=== PATIENT | female | born 1945 | race Caucasian/White ===

== ENCOUNTER 2022-10-06 10:07 | Inpatient (IN) | payer MEDICARE ==
[~2022-10-06] VITALS: Ht 154.9 cm; Wt 68.9 kg
[2022-10-06] VITALS (7 sets, daily range): BP systolic 106–115; BP diastolic 36–60; PULSE 94–105; RESP 16–18; TEMP 97.9–98.7; O2SAT 95–100
[~2022-10-06 10:07] MED LIST: CEFUROXIME250 MG PO; LIPITOR20 MG PO; PEPCID20 MG PO; SIMVASTATIN20 MG PO
[2022-10-06] MEDS ORDERED: SODIUM CHLORIDE 0.9% 1000ML 1,000 ML IV SCH ×2 (10:45→12:30)
[2022-10-06 11:39] LABS: BASOPHILS # (AUTO) 0.1 (0.0-0.1); BASOPHILS % 0.6 % (0.0-1.0); EOSINOPHILS # (AUTO) 0.3 (0.0-0.4); EOSINOPHILS % 3.3 % (0.0-6.0); HEMOGLOBIN 12.5 g/dL (12.0-16.0); LYMPHOCYTES # (AUTO) 0.8 (1.0-3.2); LYMPHOCYTES % 8.9 % (18.0-39.1); MEAN CORPUSCULAR HEMOGLOBIN 29.8 pg (28-32); MEAN CORPUSCULAR HGB CONC 32.1 g/dL (31-35); MEAN CORPUSCULAR VOLUME 92.9 fL (81-99); MONOCYTES % 11.1 % (4.4-11.3); NEUTROPHILS # (AUTO) 6.8 (2.1-6.9); NEUTROPHILS % 75.5 % (38.7-80.0); PLATELET COUNT 320 x10e3/uL (140-360); RED CELL DISTRIBUTION WIDTH 15.8 % (11.7-14.4)
[2022-10-06 11:51] LABS: ALBUMIN/GLOBULIN RATIO 1.1 (0.8-2.0); CALCIUM 9.2 mg/dL (8.4-10.2); CREATININE, SERUM 0.73 mg/dL (0.57-1.11)
[2022-10-06 12:18] LABS: CLARITY,URINE TURBID (CLEAR); COLOR,URINE YELLOW (YELLOW); LEUKOCYTE ESTERASE ,URINE NEGATIVE (NEGATIVE)
[2022-10-06 12:19] LABS: KETONES,URINE 2+ (NEGATIVE); NITRITE,URINE POSITIVE (NEGATIVE); PROTEIN,URINE DIPSTICK NEGATIVE (NEGATIVE); URINE UROBILINOGEN 0.2 mg/dL (0.2 - 1)
[2022-10-06 12:21] LABS: BACTERIA,URINE MANY /HPF; EPITHELIAL CELLS,URINE MANY /LPF; WBC,URINE (MAN) 21-50 /HPF (0-5)
[2022-10-06] MEDS ORDERED: COZAAR25 MG PO (12:54)
[2022-10-06] MEDS ORDERED: OMEPRAZOLE40 MG PO (12:54)
[2022-10-06] MEDS ORDERED: METHOTREXATE2.5 MG PO (12:54)
[2022-10-06] MEDS ORDERED: ZETIA10 MG PO (12:54)
[2022-10-06] MEDS ORDERED: PREDNISONE5 MG PO (12:54)
[2022-10-06] MEDS ORDERED: ALENDRONATE SOD70 MG PO (12:54)
[2022-10-06] MEDS ORDERED: ESTRADIOL1 MG TOP (12:54)
[2022-10-06] MEDS ORDERED: CALCIUM CARBON500 MG PO (12:54)
[2022-10-06] MEDS ORDERED: FOLIC ACID0.4 MG PO (12:54)
[2022-10-06] MEDS ORDERED: PREDNISONE10 MG PO (12:54)
[2022-10-06] MEDS ORDERED: ASPIRIN81 MG PO (12:54)
[2022-10-06] MEDS ORDERED: ONDANSETRON HCL INJ 2MG/ML 2ML 2 MG/ML VIAL IV PRN (13:00)
[2022-10-06] MEDS ORDERED: IOPAMIDOL 370 MG/ML 100 ML INFUS..BTL INJ ONE (13:31)
[2022-10-06] MEDS ORDERED: FOLIC ACID 1 MG TAB PO SCH (14:00)
[2022-10-06] MEDS: ACETAMINOPHEN 325 MG TAB PO PRN (18:20)
[2022-10-06] MEDS: SODIUM CHLORIDE 0.9% 1000ML 1,000 ML IV SCH (18:20)
[2022-10-06] MEDS ORDERED: ENOXAPARIN SOD INJ 60 MG/0.6 ML SYR SC STA (20:55)
[2022-10-06] MEDS ORDERED: OYST-CAL-D 500MG TABLET PO SCH (21:00)
[2022-10-06] MEDS: OYST-CAL-D 500MG TABLET PO SCH (22:52)
[2022-10-06] MEDS: FOLIC ACID 1 MG TAB PO SCH (22:53)
[2022-10-06] MEDS: HYDROCODONE/APAP 5MG-325MG TAB PO PRN (22:53)
[2022-10-07] VITALS (11 sets, daily range): BP systolic 101–159; BP diastolic 54–70; PULSE 72–89; RESP 16–19; TEMP 97.6–98.5; O2SAT 96–100
[2022-10-07] MEDS: SODIUM CHLORIDE 0.9% 1000ML 1,000 ML IV SCH ×3 (02:30→16:39)
[2022-10-07 05:31] LABS: BASOPHILS % 0.5 % (0.0-1.0); EOSINOPHILS # (AUTO) 0.4 (0.0-0.4); EOSINOPHILS % 9.8 % (0.0-6.0); HEMATOCRIT 33.8 % (34.2-44.1); HEMOGLOBIN 10.3 g/dL (12.0-16.0); LYMPHOCYTES # (AUTO) 1.1 (1.0-3.2); LYMPHOCYTES % 24.8 % (18.0-39.1); MEAN CORPUSCULAR HEMOGLOBIN 29.8 pg (28-32); MEAN CORPUSCULAR HGB CONC 30.5 g/dL (31-35); MEAN CORPUSCULAR VOLUME 97.7 fL (81-99); MONOCYTES # (AUTO) 0.7 (0.2-0.8); MONOCYTES % 15.7 % (4.4-11.3); NEUTROPHILS # (AUTO) 2.1 (2.1-6.9); NEUTROPHILS % 48.3 % (38.7-80.0); PLATELET COUNT 248 x10e3/uL (140-360); RED BLOOD COUNT 3.46 x10e6/uL (3.6-5.1); RED CELL DISTRIBUTION WIDTH 15.7 % (11.7-14.4)
[2022-10-07 05:45] LABS: ANION GAP 9.7 mmol/L (8-16); CALCIUM 7.6 mg/dL (8.4-10.2); CREATININE, SERUM 0.49 mg/dL (0.57-1.11); POTASSIUM 3.7 mmol/L (3.5-5.1)
[2022-10-07] MEDS: HYDROCODONE/APAP 5MG-325MG TAB PO PRN ×3 (07:27→21:19)
[2022-10-07] MEDS: PANTOPRAZOLE SOD 40 MG TABEC PO SCH (08:42)
[2022-10-07] MEDS: ASPIRIN 81 MG CHEW TAB PO SCH (08:42)
[2022-10-07] MEDS: EZETIMIBE 10 MG TAB PO SCH (08:42)
[2022-10-07] MEDS: LOSARTAN POTASSIUM 25 MG TAB PO SCH (08:43)
[2022-10-07] MEDS ORDERED: ENOXAPARIN SOD INJ 60 MG/0.6 ML SYR SC STA (11:08)
[2022-10-07] MEDS ORDERED: IOPAMIDOL 370 MG/ML 100 ML INFUS..BTL INJ ONE (13:38)
[2022-10-07] MEDS: ALBUTEROL SULF 0.083% NEB SOLN 3 ML NEB NEB SCH ×2 (15:30→23:30)
[2022-10-07] MEDS ORDERED: ONDANSETRON HCL 4 MG ORAL DISINTEGRATING TAB PO PRN (19:15)
[2022-10-07] MEDS: OYST-CAL-D 500MG TABLET PO SCH (21:15)
[2022-10-07] MEDS: FOLIC ACID 1 MG TAB PO SCH (21:15)
[2022-10-07] MEDS: ATORVASTATIN 20 MG TAB PO SCH (21:15)
[2022-10-07] MEDS: ENOXAPARIN SOD INJ 60 MG/0.6 ML SYR SC SCH (21:16)
[2022-10-08] VITALS (11 sets, daily range): BP systolic 125–145; BP diastolic 66–81; PULSE 77–102; RESP 16–22; TEMP 97.5–98.4; O2SAT 94–100
[2022-10-08] MEDS: SODIUM CHLORIDE 0.9% 1000ML 1,000 ML IV SCH ×2 (02:36→14:01)
[2022-10-08 05:31] LABS: BASOPHILS % 0.8 % (0.0-1.0); EOSINOPHILS # (AUTO) 0.4 (0.0-0.4); EOSINOPHILS % 8.8 % (0.0-6.0); HEMATOCRIT 32.6 % (34.2-44.1); HEMOGLOBIN 9.9 g/dL (12.0-16.0); LYMPHOCYTES # (AUTO) 1.6 (1.0-3.2); LYMPHOCYTES % 33.2 % (18.0-39.1); MEAN CORPUSCULAR HEMOGLOBIN 29.5 pg (28-32); MEAN CORPUSCULAR HGB CONC 30.4 g/dL (31-35); MONOCYTES # (AUTO) 0.7 (0.2-0.8); MONOCYTES % 14.1 % (4.4-11.3); NEUTROPHILS % 42.5 % (38.7-80.0); PLATELET COUNT 238 x10e3/uL (140-360); RED BLOOD COUNT 3.36 x10e6/uL (3.6-5.1); RED CELL DISTRIBUTION WIDTH 15.5 % (11.7-14.4)
[2022-10-08 06:02] LABS: BLOOD UREA NITROGEN < 5 mg/dL (7-26); CALCIUM 7.6 mg/dL (8.4-10.2); CARBON DIOXIDE 22 mmol/L (22-29); CHLORIDE 111 mmol/L (98-107); CREATININE, SERUM 0.48 mg/dL (0.57-1.11); GLUCOSE 90 mg/dL (74-118); SODIUM 139 mmol/L (136-145)
[2022-10-08 06:05] LABS: BUN/CREATININE RATIO 10 (6-25)
[2022-10-08] MEDS ORDERED: ALENDRONATE SODIUM 70 MG TAB PO SCH ×2 (06:30)
[2022-10-08] MEDS: ALBUTEROL SULF 0.083% NEB SOLN 3 ML NEB NEB SCH ×3 (07:10→19:55)
[2022-10-08 07:14] LABS: EOSINOPHILS % (MANUAL) 6 % (0-7); LYMPHOCYTES % (MANUAL) 36 % (19-48); MONOCYTES % (MANUAL) 8 % (3.4-9.0); NEUTROPHILS % (MANUAL) 45 % (40-74)
[2022-10-08 07:15] LABS: PLATELET ESTIMATE ADEQUATE; PLATELET MORPHOLOGY COMMENT NORMAL; POLYCHROMASIA FEW; RBC MORPHOLOGY COMMENT NORMAL
[2022-10-08] MEDS: EZETIMIBE 10 MG TAB PO SCH (09:58)
[2022-10-08] MEDS: LOSARTAN POTASSIUM 25 MG TAB PO SCH (09:59)
[2022-10-08] MEDS: PANTOPRAZOLE SOD 40 MG TABEC PO SCH (10:03)
[2022-10-08] MEDS: ASPIRIN 81 MG CHEW TAB PO SCH (10:03)
[2022-10-08] MEDS: PREDNISONE 5 MG TAB PO SCH (10:03)
[2022-10-08] MEDS: ENOXAPARIN SOD INJ 60 MG/0.6 ML SYR SC SCH (10:04)
[2022-10-08] MEDS ORDERED: CELECOXIB 100 MG CAP PO PRN (10:15)
[2022-10-08] MEDS: TIOTROPIUM 18 MCG INH POWDER INH SCH (11:02)
[2022-10-08] MEDS: APIXABAN 5 MG TABLET PO SCH (16:43)
[2022-10-08] MEDS: OYST-CAL-D 500MG TABLET PO SCH (20:19)
[2022-10-08] MEDS: ATORVASTATIN 20 MG TAB PO SCH (20:19)
[2022-10-08] MEDS: FOLIC ACID 1 MG TAB PO SCH (20:19)
[2022-10-09] MEDS: SODIUM CHLORIDE 0.9% 1000ML 1,000 ML IV SCH (00:11)
[2022-10-09 01:03] VITALS: BP 123/67; PULSE 88; RESP 18; TEMP 98.4; O2SAT 100
[2022-10-09 05:37] VITALS: BP 135/75; PULSE 80; RESP 20; TEMP 97.6; O2SAT 98
[2022-10-09] MEDS: ACETAMINOPHEN 325 MG TAB PO PRN (05:42)
[2022-10-09 05:53] LABS: BASOPHILS # (AUTO) 0.1 (0.0-0.1); EOSINOPHILS # (AUTO) 0.2 (0.0-0.4); EOSINOPHILS % 3.3 % (0.0-6.0); HEMATOCRIT 33.7 % (34.2-44.1); HEMOGLOBIN 10.1 g/dL (12.0-16.0); LYMPHOCYTES # (AUTO) 2.1 (1.0-3.2); LYMPHOCYTES % 39.7 % (18.0-39.1); MEAN CORPUSCULAR HEMOGLOBIN 29.1 pg (28-32); MEAN CORPUSCULAR VOLUME 97.1 fL (81-99); MONOCYTES # (AUTO) 0.5 (0.2-0.8); MONOCYTES % 9.4 % (4.4-11.3); NEUTROPHILS # (AUTO) 2.4 (2.1-6.9); NEUTROPHILS % 46.4 % (38.7-80.0); PLATELET COUNT 287 x10e3/uL (140-360); RED BLOOD COUNT 3.47 x10e6/uL (3.6-5.1); RED CELL DISTRIBUTION WIDTH 15.3 % (11.7-14.4)
[2022-10-09] MEDS: TIOTROPIUM 18 MCG INH POWDER INH SCH ×2 (06:00→10:15)
[2022-10-09] MEDS: ALBUTEROL SULF 0.083% NEB SOLN 3 ML NEB NEB SCH (07:15)
[2022-10-09 07:29] VITALS: PULSE 80; RESP 16; O2SAT 98
[2022-10-09 08:58] VITALS: BP 138/71; PULSE 70; RESP 18; TEMP 98.1; O2SAT 100
[2022-10-09] MEDS ORDERED: LACTOBACILLUS ACIDOPHILUS CAPSULE PO SCH (10:00)
[2022-10-09] MEDS: APIXABAN 5 MG TABLET PO SCH (10:17)
[2022-10-09] MEDS: PANTOPRAZOLE SOD 40 MG TABEC PO SCH (10:17)
[2022-10-09] MEDS: ASPIRIN 81 MG CHEW TAB PO SCH (10:17)
[2022-10-09] MEDS: LOSARTAN POTASSIUM 25 MG TAB PO SCH (10:17)
[2022-10-09] MEDS: PREDNISONE 5 MG TAB PO SCH (10:18)
[2022-10-09] MEDS: EZETIMIBE 10 MG TAB PO SCH (10:18)
[2022-10-09] MEDS ORDERED: SPIRIVA18 MCG INH (11:40)
[2022-10-09] MEDS ORDERED: CIPRO500 MG PO (11:40)
[2022-10-09] MEDS ORDERED: ELIQUIS5 MG PO (11:40)
[2022-10-09] MEDS ORDERED: Lactobacillus Acidophilus PO (11:40)
== END 2022-10-09 12:29 | disposition home or self-care (01) | DRG 689 ==
LOC: VACCPMC 10:14 → ERHOLD 12:27 → MED/SURG2 16:01 → OBSVTOIN 10-08 10:15
PROVIDERS: ADMIT Internal Medicine; ATTEND Internal Medicine
DX: N39.0 Urinary tract infection, site not specified (principal); I26.99 Other pulmonary embolism without acute cor pulmonale; Z16.12 Extended spectrum beta lactamase (ESBL) resistance; B96.1 Klebsiella pneumoniae [K. pneumoniae] as the cause of diseases classified elsewhere; I10 Essential (primary) hypertension; J44.9 Chronic obstructive pulmonary disease, unspecified; Z87.891 Personal history of nicotine dependence; R09.1 Pleurisy; E78.00 Pure hypercholesterolemia, unspecified; M06.9 Rheumatoid arthritis, unspecified; D75.1 Secondary polycythemia; M79.7 Fibromyalgia; N81.10 Cystocele, unspecified
CPT/HCPCS: 0223U; 36415; 71045; 71260; 74177; 80048; 80053; 81001; 83605; 85025; 87040; 87086; 87186; 93306; 94060; 94664; 94799; 99284; G0378; J0696; J1650; J2185; J7030; J7512; Q9967